=== PATIENT | male | born 1995 | race Two or more races ===

== ENCOUNTER 2020-10-17 10:34 | Emergency (ER) | payer OTHER ==
[~2020-10-17] VITALS: Ht 175.3 cm; Wt 104.5 kg
[2020-10-17 10:47] VITALS: BP 145/87
[2020-10-17] MEDS ORDERED: MUPI22OI2 TP (10:56)
[2020-10-17] MEDS ORDERED: CLIN300C9 PO (10:56)
--- NOTE | 2020-10-17 10:56 | PHYS DOC ---
Past History Past Surgical History: No Surgical History Alcohol Use: None General Adult EDM: Chief Complaint: SKIN RASH/ABSCESS HPI: HPI: Patient is a [age] year old [sex] who presents with [] Review of Systems: Review of Systems: Constitutional: Denies fever or chills Eyes: Denies change in visual acuity HENT: Denies nasal congestion or sore throat Respiratory: Denies cough or shortness of breath Cardiovascular: Denies chest pain or edema GI: Denies abdominal pain, nausea, vomiting, bloody stools or diarrhea : Denies dysuria Musculoskeletal: Denies back pain or joint pain Integument: Denies rash Neurologic: Denies headache, focal weakness or sensory changes Endocrine: Denies polyuria or polydipsia Lymphatic: Denies swollen glands Psychiatric: Denies depression or anxiety Allergies: Allergies: Allergies Coded Allergies Type Severity Reaction Last Updated Verified No Known Drug Allergies 10/17/20 No Physical Exam: PE: Constitutional: Well developed, well nourished, no acute distress, non-toxic appearance. [] HENT: Normocephalic, atraumatic, bilateral external ears normal, oropharynx moist, no oral exudates, nose normal. [] Eyes: PERRLA, EOMI, conjunctiva normal, no discharge. [] Neck: Normal range of motion, no tenderness, supple, no stridor. [] Cardiovascular:Heart rate regular rhythm, no murmur [] Lungs & Thorax: Bilateral breath sounds clear to auscultation [] Abdomen: Bowel sounds normal, soft, no tenderness, no masses, no pulsatile masses. [] Skin: Warm, dry, no erythema, no rash. [] Back: No tenderness, no CVA tenderness. [] Extremities: No tenderness, no cyanosis, no clubbing, ROM intact, no edema. [] Neurologic: Alert and oriented X 3, normal motor function, normal sensory function, no focal deficits noted. [] Psychologic: Affect normal, judgement normal, mood normal. [] Current Patient Data: Vital Signs: Vital Signs Date Time Temp Pulse Resp B/P (MAP) Pulse Ox O2 Delivery O2 Flow Rate FiO2 10/17/20 10:47 98.1 101 18 145/87 99 EKG: EKG: [] Radiology/Procedures: Radiology/Procedures: [] Heart Score: Risk Factors: Risk Factors: DM, Current or recent (<one month) smoker, HTN, HLP, family history of CAD, obesity. Risk Scores: Score 0 - 3: 2.5% MACE over next 6 weeks - Discharge Home Score 4 - 6: 20.3% MACE over next 6 weeks - Admit for Clinical Observation Score 7 - 10: 72.7% MACE over next 6 weeks - Early Invasive Strategies Course & Med Decision Making: Course & Med Decision Making Pertinent Labs and Imaging studies reviewed. (See chart for details) [] Dragon Disclaimer: Dragbobby Disclaimer: This electronic medical record was generated, in whole or in part, using a voice recognition dictation system. Departure Departure: Impression: Primary Impression: Tattoo Additional Impression: Cellulitis Qualified Codes: L03.113 - Cellulitis of right upper limb Disposition: HOME / SELF CARE / HOMELESS Condition: STABLE Referrals: MOY MARQUIS DO (PCP) Patient Instructions: Cellulitis, [id number], Tattoo Infection Additional Instructions: Do not soak your wound. You may shower. Clean wound daily with soap and water. Change dressing 3 times daily. Use prescribed antibiotic ointment with each dressing change. Use [id number] Tylenol and/or ibuprofen for pain or discomfort. Take antibiotics till completion Scripts Mupirocin (MUPIROCIN) 22 Gm Oint...g. 1 TIERNEY TP TID for Cellulitis, #15 GM Prov: YOLI PISANO DO 10/17/20 Clindamycin Hcl (CLINDAMYCIN HCL) 300 Mg Capsule 1 CAP PO TID for infection for 7 Days, #21 CAP Prov: YOLI PISANO DO 10/17/20 YOLI PISANO DO Oct 17, 2020 10:56
[2020-10-17] MEDS ORDERED: CLINDAMYCIN HCL 150 MG CAPSULE PO ONE (11:00)
[2020-10-17] MEDS ORDERED: MUPIROCIN 2% TOPICAL OINTMENT 22GM TUBE. TP ONE (11:00)
[2020-10-17] MEDS ORDERED: DIPH,PERTUSS(ACELL),TET VAC/PF 0.5 ML SYRINGE. VAX IM ONE (11:15)
== END 2020-10-17 11:19 | disposition home or self-care (01) ==
LOC: ER 10:34
DX: L03.113 Cellulitis of right upper limb (principal); L81.8 Other specified disorders of pigmentation
CPT/HCPCS: 90471; 90715; 99283